=== PATIENT | male | born 1990 | race American Indian/Alaskan Native ===

== ENCOUNTER 2021-11-28 18:06 | Emergency (ER) | payer MEDICAID ==
[2021-11-28] MEDS ORDERED: SODIUM CHLORIDE 0.9% 1000 ML 1,000 ML IV ONE ×2 (18:42→21:09)
[2021-11-28] MEDS ORDERED: HYDROmorphone 1 MG/1 ML INJ IV ONE ×2 (18:42→21:08)
[2021-11-28] MEDS ORDERED: GABAPENTIN 400 MG CAP PO ONE (19:07)
[2021-11-28] MEDS ORDERED: PROPRANOLOL 10 MG TAB PO ONE (19:07)
[2021-11-28] MEDS ORDERED: BACLOFEN 10 MG TAB PO STA (19:07)
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
--- NOTE | 2021-11-28 19:52 | XRay Report ---
XR chest 1V ap INDICATION / CLINICAL INFORMATION: Weakness COMPARISON: None available. FINDINGS: SUPPORT DEVICES: None. HEART / MEDIASTINUM: No significant abnormality. LUNGS / PLEURA: Lungs are clear. Costophrenic sulci are sharp. No pneumothorax. ADDITIONAL FINDINGS: No significant additional findings. IMPRESSION: 1. No acute findings. Signer Name: Edward Santana MD Signed: 11/28/2021 7:47 PM Workstation Name: [id number]
[2021-11-28 20:37] LABS: Bilirubin,Urine NEG (Negative); Blood,Urine NEG (Negative); Color,Urine Yellow (Yellow); Urobilinogen,Urine < 2.0 mg/dL (<2.0)
[2021-11-28 20:43] LABS: Bacteria,Urine 4+ /HPF (Negative); Mucus,Urine FEW /HPF
[2021-11-28 20:52] LABS: Eosinophils % (Auto) 0.8 % (0.0-4.3); Hematocrit 51.4 % (35.5-45.6); Hemoglobin 16.1 gm/dl (11.8-15.2); Lymphocytes # (Auto) 2.4 K/mm3 (1.2-5.4); Lymphocytes % (Auto) 26.3 % (13.4-35.0); Mean Corpuscular HGB Conc 31 % (32-34); Mean Corpuscular Volume 76 fl (84-94); Monocytes % (Auto) 5.8 % (0.0-7.3); Platelet Count 391 K/mm3 (140-440); Red Blood Count 6.78 M/mm3 (3.65-5.03); Red Cell Distribution Width 15.7 % (13.2-15.2)
[2021-11-28 20:53] LABS: Basophils # (Auto) 0.1 K/mm3 (0.0-0.1); Eosinophils # (Auto) 0.1 K/mm3 (0.0-0.4); Monocytes # (Auto) 0.5 K/mm3 (0.0-0.8)
[2021-11-28 21:08] LABS: Alanine Aminotransferase 12 units/L (7-56); Blood Urea Nitrogen 7 mg/dL (9-20); Calcium 10.6 mg/dL (8.4-10.2); Hemolysis Index 141
[2021-11-28] MEDS ORDERED: HYDROmorphone 0.5 MG/0.5 ML INJ IV ONE (21:09)
[2021-11-28 21:14] LABS: BUN/Creatinine Ratio 10
[2021-11-28] MEDS ORDERED: diazePAM 10 MG/2 ML SYRINGE IV ONE (23:26)
[2021-11-29 00:12] VITALS: BP 118/82
--- NOTE | 2021-11-29 10:36 | Electrocardiograph Report ---
[facility] Test Date: 2021-11-28 Test Time: 19:04:55 Pat Name: TWIN CAMARGO Department: Room: Gender: M Headmaster/Mistress: VILMA : 1990 Requested By: VANI WOLF Order Number: [id number] Reading MD: Aneesh Grady Measurements Intervals [place] Rate: 89 P: 60 MD: 135 QRS: -7 QRSD: 96 T: -9 QT: 339 QTc: 414 Interpretive Statements Sinus rhythm Nonspecific T abnormalities, anterior leads No previous ECG available for comparison Electronically Signed On 11-29-2021 10:35:51 EDT by Aneesh Grady
== END 2021-11-29 02:27 | disposition home or self-care (01) ==
LOC: ED 18:06
DX: G82.20 Paraplegia, unspecified (principal); R25.2 Cramp and spasm; F19.239 Other psychoactive substance dependence with withdrawal, unspecified; Z76.0 Encounter for issue of repeat prescription
CPT/HCPCS: 36415; 71045; 80053; 81001; 82550; 83735; 84439; 84443; 84484; 85025; 87040; 87076; 87086; 87186; 93005; 96361; 96374; 96375; 96376; 99284; J1170; J3360; J7030